=== PATIENT | male | born 1995 | race African-American/Black ===

== ENCOUNTER 2021-01-07 20:13 | Emergency (ER) | payer OTHER, SELFPAY ==
[2021-01-07 20:15] VITALS: BP 126/62; PULSE 90; RESP 16; TEMP 36.6; O2SAT 98
[2021-01-07 20:24] VITALS: RESP 16
[2021-01-07 20:37] LABS: Abs Immature Grans 0.01 10^3/uL (0.0-0.06); Absolute Basophil Count 0.04 10^3/uL (0.0-0.2); Absolute Eosinophil Count 0.02 10^3/uL (0.0-0.7); Absolute Lymphocyte Count 1.35 10^3/uL (1.2-3.4); Absolute Monocyte Count 0.44 10^3/uL (0.1-0.8); Absolute Neutrophil Count 3.14 10^3/uL (1.2-6.7); Basophils % 0.8; Eosinophils % 0.4; HCT 40.7 % (40.0-50.0); HGB 13.5 g/dL (13.5-17.5); Immature Grans % 0.2; MCH 32.2 pg (27.0-33.0); MCHC 33.2 % (32.0-36.0); MCV 97.1 fL (80-95); MPV 11.5 fL (8.0-11.0); Monocytes % 8.8; Neutrophils % 62.8; Nucleated RBC 0 %; Platelet Count 232 10^3/uL (130-400); RBC 4.19 10^6/uL (4.36-5.78); RDW 10.6 % (11.8-14.1); RDW-SD 37.7 fL
--- NOTE | 2021-01-07 20:39 | W.ED.GENAD ---
Discharge Plan Disposition Patient Disposition: AGAINST MEDICAL ADVICE Condition: Stable Discharge Details Clinical Impression: Accidental overdose, Left against medical advice Primary Care Provider: Unknown,Unknown ED Provider: Nicolas Spear Discharge Instructions Additional Instructions: At this time you are leaving against our recommendations. It is our recommendations that you get the further imaging studies that we discussed. For your own safety you will need to be in a monitored environment at the custodial for the next 24 hours to make sure you do not have any repeat episodes of altered mental status secondary to the substances that you previously ingested. If you notice any worsening of your symptoms, or any new symptoms such as vomiting, diarrhea, fever, chills, shortness of breath, chest pain, numbness, weakness, or fainting , please return immediately to the emergency department for reevaluation. Please follow up with your primary care provider as soon as possible for reassessment and reevaluation. As always, it was a pleasure participating in your medical care today. Medical Decision Making 25-year-old -[place] male [facility] of unknown substance. EMS and [facility] staff state that they witnessed a man tried to mouth a small bag of white powder. They were able to extricate the bag from his mouth, but a notable amount of powder got on him and in his mouth. Shortly thereafter he became unresponsive but maintained breathing. Staff was unsure if he had ingested any other bags previously. Patient was given 2 doses of intranasal Narcan when his GCS was noted to be 4. 15 to 20 minutes after that after EMS had evaluated the patient the patient began to come back to her normal mental state. EMS reports that the pupils were pinpoint initially on assessment but have opened up has the patient's mental status improved. Patient states that he is taken cocaine recently, but denies any recent heroin use. He does not give any information as to what was in the bag use. He denies any chest pain or other complaints. Physical exam demonstrates a well-appearing male. At this time pupils are reactive, no longer pinpoint. He has no abdominal tenderness, lung sounds are normal. Oropharynx is clear. We will order basic labs, UDS, and get imaging to evaluate for any other large amount of ingested substance. Patient remained stable at this time. 8:50 PM Patient now states that he does not want any additional work-up, he is refusing imaging, and states that he feels fine. He does not want anything done to him at this time. I informed him that I felt that imaging was indicated at this time for further evaluation based on the concern for other potential ingested substance. He states he understands this but refuses imaging with a CT scan. We will get a plain film abdominal series 9:05 PM Patient is now refusing any additional interventions testing or imaging. He states explicitly that there will be notable confrontation and trouble if we can try to continue to do anything else. His demeanor is otherwise calm and placid. Patient is ANO x4, and at this time demonstrates no signs of altered mental status or evidence of significant illicit drug influence on his current mental status or demeanor. Patient has a right to refuse further testing at this time. However that being said he will need to still be under a monitored environment at the custodial system. I have contacted the custodial medical staff, and inform them of this. I recommend continued monitoring for the next 24 hours. Patient remains hemodynamically stable here. Patient will be discharged against our medical advice and recommendations. Patient is of a appropriate age to make decisions. The patient is of sound mind, appears clinically sober, and has capacity to make decisions by my clinical exam. We have provided options for treatment and discussed the risks and benefits of these options and refusing these options, including and disability specific to the patient's pathology. Patient is able to discuss the risks and benefits and alternatives of treatment and refusing treatment. The patient chooses to leave before evaluation and treatment is complete AGAINST MEDICAL ADVICE. HPI General Date/Time Provider Initiated Documentation: 01/07/21 20:20. HPI Narrative: 25-year-old -[place] male [facility] for [facility] of unknown substance. EMS and [facility] staff state that they witnessed a man tried to mouth a small bag of white powder. They were able to extricate the bag from his mouth, but a notable amount of powder got on him and in his mouth. Shortly thereafter he became unresponsive but maintained breathing. Staff was unsure if he had ingested any other bags previously. Patient was given 2 doses of intranasal Narcan when his GCS was noted to be 4. 15 to 20 minutes after that after EMS had evaluated the patient the patient began to come back to her normal mental state. EMS reports that the pupils were pinpoint initially on assessment but have opened up has the patient's mental status improved. Patient states that he is taken cocaine recently, but denies any recent heroin use. He does not give any information as to what was in the bag use. He denies any chest pain or other complaints. General Stated Complaint: OD/Poison LANI: 2 Review of Systems All systems reviewed & are unremarkable except as noted in HPI and below [facility] Social History Smoking/Tobacco Use Status: Never Smoking risk assessment performed?: Yes Alcohol Intake: former Drug use: Daily Substance use type: marijuana and crack/cocaine Do you feel safe at home: Yes Do you feel safe in your relationship?: Yes Exam Narrative Exam Narrative: 1.Const: Well-nourished, Well-developed, appearing stated age 2.Eyes: PERRL, no conjunctival injection, and symmetrical lids. 3.ENT: Atraumatic external nose and ears. Moist MM. Neck: Symmetric, trachea midline, No thyromegaly. 4.CVS: +S1/S2, No murmurs or gallops. Peripheral pulses 2+ and equal in all extremities. Brisk capillary refill in all extremities. 5.RESP: Unlabored respiratory effort. Clear to auscultation bilaterally. No wheezes rales or rhonchi 6.GI: Soft, Nontender/Nondistended, No hepatosplenomegaly. No guarding or rebound. 7.MSK: Normocephalic/Atraumatic, Extremities w/o deformity or ttp No cyanosis or clubbing, Normal movement of all extremities 8.Skin: Warm, Dry. No rashes or lesions. 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 Sensation grossly intact, no focal neurologic deficits. 10.Psych: (AAO) x3. Appropriate mood and affect Course Vital Signs Vital signs: Vital Signs Temperature 36.6 C 01/07/21 20:15 Pulse 90 01/07/21 20:15 Respiratory Rate 16 01/07/21 20:15 Blood Pressure 126/62 01/07/21 20:15 Pulse Oximetry 98 01/07/21 20:15 Temperature 36.6 C 01/07/21 20:15 Temperature Source Temporal Artery Scan 01/07/21 20:15 Pulse 90 01/07/21 20:15 Respiratory Rate 16 01/07/21 20:24 Respiratory Effort 01/07/21 20:24 Respiratory Pattern Normal 01/07/21 20:24 Blood Pressure 126/62 01/07/21 20:15 Blood Pressure Position Sitting 01/07/21 20:15 Pulse Oximetry 98 01/07/21 20:15 Oxygen Delivery Method Room Air 01/07/21 20:15 Oxygen Flow Rate 0 01/07/21 20:15
--- NOTE | 2021-01-07 20:52 | NUR.NOTE ---
Pt adamant about refusing care. Removed own IV and refused urine, CT or CXR. Pt is awake and alert and logical in his conversation.
[2021-01-07 21:01] LABS: ALT 34 U/L (16-63); AST 16 U/L (15-37); Albumin 3.9 g/dL (3.4-5.0); Alkaline Phosphatase 73 U/L (46-116); Anion Gap 7.9 mmol/L (3-11); BUN 7 mg/dL (7-18); Bilirubin, Total 0.7 mg/dL (0.2-1.0); CO2 28.1 mmol/L (21.0-32.0); CREATININE 1.4 mg/dL (0.70-1.30); Chloride 107 mmol/L (98-107); Glucose 92 mg/dL (74-106); Potassium 3.9 mmol/L (3.5-5.1); Sodium 143 mmol/L (136-145); Total Protein 7.5 g/dL (6.4-8.2)
[2021-01-07 21:15] LABS: ETHANOL BLOOD < 3.0 mg/dL (<3)
[2021-01-07 21:26] LABS: Salicylate < 2.8 mg/dL (<2.8)
[2021-01-07 21:27] LABS: Acetaminophen < 2 ug/mL (10-30)
== END 2021-01-07 21:05 | disposition left against medical advice (07) ==
PROVIDERS: Emergency Provider Student in an Organized Health Care Education/Training Program
DX: T50.901A Poisoning by unspecified drugs, medicaments and biological substances, accidental (unintentional), initial encounter (principal); H57.03 Miosis; R41.82 Altered mental status, unspecified; R40.2431 Glasgow coma scale score 3-8, in the field [EMT or ambulance]; Z53.29 Procedure and treatment not carried out because of patient's decision for other reasons
CPT/HCPCS: 36415; 80053; 80307; 99283; 80320; 80329; 85025